=== PATIENT | female | born 1955 | race Caucasian/White ===

== ENCOUNTER 2016-08-22 20:09 | Emergency (ER) | payer SELFPAY ==
[2016-08-22 20:10] VITALS: BP 189/80; PULSE 80; RESP 16; TEMP 98.5; O2SAT 98
[2016-08-22 22:26] LABS: AUTOMATED NEUTROPHIL # 5.4 TH/MM3 (1.8-7.7); BASOPHIL # 0.1 TH/MM3 (0-0.2); BASOPHIL % 0.7 % (0.0-2.0); EOSINOPHIL # 0.2 TH/MM3 (0-0.4); EOSINOPHIL % 2.1 % (0.0-4.0); HEMO FLAGS DIFF FINAL; LYMPH % 33.5 % (9.0-44.0); LYMPHOCYTE # 3.1 TH/MM3 (1.0-4.8); MEAN CELL VOLUME 83.8 FL (80.0-100.0); MEAN CORPUSCULAR HEMOGLOBIN 28.9 PG (27.0-34.0); MEAN CORPUSCULAR HGB CONC 34.5 % (32.0-36.0); MONO % 5.7 % (0.0-8.0); PLATELET COUNT 280 TH/MM3 (150-450); RED CELL DISTRIBUTION WIDTH 13.5 % (11.6-17.2); WHITE BLOOD COUNT 9.3 TH/MM3 (4.0-11.0)
[2016-08-22 22:43] LABS: BICARBONATE 28.8 MEQ/L (21.0-32.0); POTASSIUM 4.2 MEQ/L (3.5-5.1)
--- NOTE | 2016-08-23 00:52 | PD ---
HPI Chief Complaint: Bleeding Time Seen by Provider: 23:46 Travel History International Travel<30 days: No Contact w/Intl Traveler<30days: No Traveled to known affect area: No History of Present Illness HPI 60-year-old female arrives complaining of vaginal bleeding for 3 months. She has minimal spotting following urination initially. Today the patient required or pads to control bleeding. She offers no system consistent with acute anemia. She denies a past surgical history. Last menstruation was over 10 years prior. Past medical history includes diabetes type 2, hypertension, hypothyroidism, hyperlipidemia. She has no known drug allergies. She recently relocated to the area and has no follow-up. PFSH Past Medical History Hx Anticoagulant Therapy: Yes Diabetes: Yes Patient Takes Glucophage: Yes Hypertension: Yes Thyroid Disease: Yes ?: Not Past Surgical History Surgical History: No Previous Surgery Social History Alcohol Use: No Tobacco Use: No Substance Use: No Allergies-Medications (Allergen,Severity, Reaction): Coded Allergies: No Known Allergies (Unverified , 08/23/16) Review of Systems Except as stated in HPI: all other systems reviewed are Neg General / Constitutional: No: Fever, Chills Physical Exam Narrative GENERAL: 60-year-old female pleasant no acute distress GENITOURINARY: External genitalia normal. No mass, no lesion or active bleeding involving the vaginal mucosa. SKIN: Focused skin assessment warm/dry. HEAD: Atraumatic. Normocephalic. EYES: Pupils equal and round. No scleral icterus. No injection or drainage. ENT: No nasal bleeding or discharge. Mucous membranes pink and moist. NECK: Trachea midline. No JVD. CARDIOVASCULAR: Regular rate and rhythm. No murmur appreciated. RESPIRATORY: No accessory muscle use. Clear to auscultation. Breath sounds equal bilaterally. GASTROINTESTINAL: Abdomen soft, non-tender, nondistended. Hepatic and splenic margins not palpable. MUSCULOSKELETAL: No obvious deformities. No clubbing. No cyanosis. No edema. NEUROLOGICAL: Awake and alert. No obvious cranial nerve deficits. Motor grossly within normal limits. Normal speech. PSYCHIATRIC: Appropriate mood and affect; insight and judgment normal. Data Data Last Documented VS Vital Signs Date Time Temp Pulse Resp B/P Pulse Ox O2 Delivery O2 Flow Rate FiO2 08/22/16 20:10 98.5 80 16 189/80 98 Room Air Vital signs reviewed Orders Complete Blood Count With Diff (08/22/16 21:12) Basic Metabolic Panel (Bmp) (08/22/16 21:12) Urinalysis - C+S If Indicated (08/23/16 00:22) Urine Culture (08/23/16 00:43) Labs Laboratory Tests Test 08/22/16 08/23/16 21:50 00:43 White Blood Count 9.3 TH/MM3 Red Blood Count 4.90 MIL/MM3 Hemoglobin 14.2 GM/DL Hematocrit 41.0 % Mean Corpuscular Volume 83.8 FL Mean Corpuscular Hemoglobin 28.9 PG Mean Corpuscular Hemoglobin 34.5 % Concent Red Cell Distribution Width 13.5 % Platelet Count 280 TH/MM3 Mean Platelet Volume 7.7 FL Neutrophils (%) (Auto) 58.0 % Lymphocytes (%) (Auto) 33.5 % Monocytes (%) (Auto) 5.7 % Eosinophils (%) (Auto) 2.1 % Basophils (%) (Auto) 0.7 % Neutrophils # (Auto) 5.4 TH/MM3 Lymphocytes # (Auto) 3.1 TH/MM3 Monocytes # (Auto) 0.5 TH/MM3 Eosinophils # (Auto) 0.2 TH/MM3 Basophils # (Auto) 0.1 TH/MM3 CBC Comment DIFF FINAL Differential Comment Sodium Level 140 MEQ/L Potassium Level 4.2 MEQ/L Chloride Level 102 MEQ/L Carbon Dioxide Level 28.8 MEQ/L Anion Gap 9 MEQ/L Blood Urea Nitrogen 26 MG/DL Creatinine 1.26 MG/DL Estimat Glomerular Filtration 43 ML/MIN Rate Random Glucose 117 MG/DL Calcium Level 9.4 MG/DL Urine Color YELLOW Urine Turbidity HAZY Urine pH 5.0 Urine Specific [place] 1.014 Urine Protein 30 mg/dL Urine Glucose (UA) NEG mg/dL Urine Ketones NEG mg/dL Urine Occult Blood LARGE Urine Nitrite NEG Urine Bilirubin NEG Urine Urobilinogen LESS THAN 2.0 MG/DL Urine Leukocyte Esterase SMALL Urine RBC /hpf Urine WBC 22 /hpf Urine Squamous Epithelial 5 /hpf Cells Urine Transitional Epithelial <1 /hpf Cells Urine Bacteria RARE /hpf Urine Mucus FEW /lpf Microscopic Urinalysis Comment CULTURE INDICATED MDM Medical Decision Making Medical Screen Exam Complete: Yes Emergency Medical Condition: Yes Medical Record Reviewed: Yes Differential Diagnosis Acute anemia, uterine cancer, UTI, cervical or vaginal mucosal lesion Narrative Course The patient 60 years old. She has had vaginal bleeding for 3 months. She has yet to follow-up with any provider. Her pelvic exam is unremarkable. There is no acute anemia. The patient understands she might be suffering with uterine cancer or gynecologic cancer. Follow-up providers listed on discharge papers. Pt has verbalized intent to follow up. Possible cystitis noted. Bactrim prescribed. Diagnosis Primary Impression: Vaginal bleeding Additional Impression: Cystitis Referrals: Noris Walker MD [employer] Administrator on-call for [facility] [employer] on 08/23/16, the day you were seen here Rema Manning MD Gynecologic Oncologist Additional Instructions: You have a choice when it comes to health care, and we are glad that you chose [facility]. Hopefully, we have met your expectations on today's visit. You are welcome to return to [facility] at any time, as we are committed to meeting the health care needs of our community. Med/Other Pt SpecificInfo: Prescription(s) given, No Change to Meds Scripts Sulfamethoxazole-Trimethoprim (Bactrim DS)800-160 Mg Tab1 Tab PO BID #6 TAB Ref 0 Prov:Han Stkoes MD 08/23/16 Disposition: 01 DISCHARGE HOME Condition: Stable Han Stokes MD Aug 23, 2016 00:52
[2016-08-23 01:07] LABS: BACTERIA, URINE RARE /hpf; BLOOD, URINE LARGE (NEG); GLUCOSE,URINE NEG (NEG); KETONE, URINE NEG (NEG); MUCUS URINE FEW /lpf (OCC); NITRITE,URINE NEG (NEG); SQUAMOUS EPITHELIAL CELL URINE 5 /hpf (0-5); TRANSITIONAL EPI CELLS, URINE <1 /hpf; URINE COLOR YELLOW (YELLW/STRAW)
[2016-08-23 01:08] LABS: COMMENT (UR) CULTURE INDICATED; CULTURE IF INDICATED CULTURE INDICATED
[2016-08-23] MEDS ORDERED: BACT800T5 PO (01:12)
[2016-08-23] MEDS ORDERED: SULFAMETHOXAZOLE-TRIMETHOPRIM DS 800-160 MG TAB PO ONE (01:15)
== END 2016-08-23 01:47 | disposition home or self-care (01) ==
LOC: NEPC 20:09
DX: N93.9 Abnormal uterine and vaginal bleeding, unspecified (principal); N30.90 Cystitis, unspecified without hematuria; E11.9 Type 2 diabetes mellitus without complications; I10 Essential (primary) hypertension; E03.9 Hypothyroidism, unspecified; E78.5 Hyperlipidemia, unspecified; Z79.01 Long term (current) use of anticoagulants; Z79.84 Long term (current) use of oral hypoglycemic drugs
CPT/HCPCS: 80048; 81001; 85025; 87086; 99283

== ENCOUNTER 2017-04-01 08:49 | Emergency (ER) | payer SELFPAY ==
[~2017-04-01] VITALS: Ht 165.1 cm; Wt 86.0 kg
[~2017-04-01 08:49] MED LIST: BACT800T5 PO
[2017-04-01 08:51] VITALS: BP 213/104; PULSE 85; RESP 16; TEMP 98.5; O2SAT 97
[2017-04-01] MEDS ORDERED: METF500T PO (09:14)
[2017-04-01] MEDS ORDERED: LEVO150T7 PO (09:14)
[2017-04-01] MEDS ORDERED: CENTCHW4 CHEW (09:14)
[2017-04-01] MEDS ORDERED: LISI-515 PO (09:14)
[2017-04-01] MEDS ORDERED: ASPI-516 CHEW (09:14)
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
[2017-04-01 09:39] LABS: AUTOMATED NEUTROPHIL # 4.8 TH/MM3 (1.8-7.7); BASOPHIL % 0.6 % (0.0-2.0); EOSINOPHIL # 0.2 TH/MM3 (0-0.4); EOSINOPHIL % 3.4 % (0.0-4.0); HEMATOCRIT 39.7 % (35.0-46.0); HEMO FLAGS DIFF FINAL; LYMPH % 24.4 % (9.0-44.0); LYMPHOCYTE # 1.7 TH/MM3 (1.0-4.8); MEAN CELL VOLUME 83.7 FL (80.0-100.0); MEAN CORPUSCULAR HEMOGLOBIN 27.8 PG (27.0-34.0); MEAN CORPUSCULAR HGB CONC 33.2 % (32.0-36.0); MONO % 4.6 % (0.0-8.0); PLATELET COUNT 314 TH/MM3 (150-450); RED BLOOD COUNT 4.74 MIL/MM3 (4.00-5.30); RED CELL DISTRIBUTION WIDTH 12.6 % (11.6-17.2)
[2017-04-01 09:55] LABS: CHLORIDE 105 MEQ/L (98-107); SODIUM (NA) 139 MEQ/L (136-145)
[2017-04-01 10:00] VITALS: BP 140/67; PULSE 77; RESP 16; O2SAT 98
[2017-04-01 10:00] LABS: ANION GAP 9 MEQ/L (5-15); BICARBONATE 25.4 MEQ/L (21.0-32.0)
[2017-04-01 10:01] LABS: BLOOD UREA NITROGEN 23 MG/DL (7-18)
[2017-04-01 10:03] LABS: ALT (GPT) 23 U/L (10-53)
[2017-04-01 10:04] LABS: AST (GOT) 16 U/L (15-37); GLOMERULAR FILTRATION RATE 56 ML/MIN (>89)
[2017-04-01 10:07] LABS: ALKALINE PHOSPHATASE 73 U/L (45-117); TOTAL BILIRUBIN ADULT 0.3 MG/DL (0.2-1.0)
== END 2017-04-01 10:28 | disposition home or self-care (01) ==
LOC: PHED 08:49
DX: N95.0 Postmenopausal bleeding (principal); N84.1 Polyp of cervix uteri; I10 Essential (primary) hypertension; E11.9 Type 2 diabetes mellitus without complications; E03.9 Hypothyroidism, unspecified; E78.5 Hyperlipidemia, unspecified; Z79.84 Long term (current) use of oral hypoglycemic drugs; Z79.82 Long term (current) use of aspirin; Z79.899 Other long term (current) drug therapy
CPT/HCPCS: 80053; 85025; 99284

== ENCOUNTER 2017-07-23 15:08 | Emergency (ER) | payer BC ==
[~2017-07-23 15:08] MED LIST changes: +ASPI-516 CHEW; -BACT800T5 PO; +CENTCHW4 CHEW; +LEVO150T7 PO; +LISI-515 PO; +METF500T PO
[2017-07-23] MEDS ORDERED: IOHEXOL 350 MG/ML 10 ML VIAL (for RAD DIAG) IVCONTRAST ONE (15:09)
[2017-07-23 15:26] VITALS: BP 193/100; PULSE 91; RESP 20; TEMP 98.4; O2SAT 96
[2017-07-23 16:34] LABS: AUTOMATED NEUTROPHIL # 8.4 TH/MM3 (1.8-7.7); BASOPHIL # 0.1 TH/MM3 (0-0.2); BASOPHIL % 0.5 % (0.0-2.0); EOSINOPHIL # 0.3 TH/MM3 (0-0.4); EOSINOPHIL % 2.4 % (0.0-4.0); HEMATOCRIT 38.9 % (35.0-46.0); HEMOGLOBIN 13.2 GM/DL (11.6-15.3); LYMPH % 14.5 % (9.0-44.0); LYMPHOCYTE # 1.6 TH/MM3 (1.0-4.8); MEAN CORPUSCULAR HEMOGLOBIN 28.2 PG (27.0-34.0); MEAN CORPUSCULAR HGB CONC 33.9 % (32.0-36.0); MEAN PLATELET VOLUME 6.9 FL (7.0-11.0); MONO % 5.3 % (0.0-8.0); MONOCYTE # 0.6 TH/MM3 (0-0.9); NEUT % 77.3 % (16.0-70.0); PLATELET COUNT 408 TH/MM3 (150-450); RED BLOOD COUNT 4.68 MIL/MM3 (4.00-5.30); RED CELL DISTRIBUTION WIDTH 13.2 % (11.6-17.2); WHITE BLOOD COUNT 10.8 TH/MM3 (4.0-11.0)
[2017-07-23 16:35] LABS: BACTERIA, URINE RARE /hpf; BILIRUBIN, URINE NEG (NEG); BLOOD, URINE SMALL (NEG); GLUCOSE,URINE NEG (NEG); KETONE, URINE NEG (NEG); NITRITE,URINE NEG (NEG); PH, URINE 5.5 (5.0-8.5); RENAL EPITHELIAL CELLS <1 /hpf; SQUAMOUS EPITHELIAL CELL URINE 1 /hpf (0-5); URINE COLOR YELLOW (YELLW/STRAW); URINE LEUKOCYTE ESTERASE NEG (NEG)
[2017-07-23 16:47] LABS: ALT (GPT) 27 U/L (10-53); AST (GOT) 20 U/L (15-37); BICARBONATE 28.4 MEQ/L (21.0-32.0); BLOOD UREA NITROGEN 23 MG/DL (7-18); CALCIUM 9.3 MG/DL (8.5-10.1); CHLORIDE 103 MEQ/L (98-107); CREATININE 0.98 MG/DL (0.50-1.00); GLOMERULAR FILTRATION RATE 58 ML/MIN (>89); GLUCOSE,RANDOM 112 MG/DL (74-106); SODIUM (NA) 138 MEQ/L (136-145)
[2017-07-23 16:50] LABS: ALKALINE PHOSPHATASE 122 U/L (45-117); TOTAL BILIRUBIN ADULT 0.3 MG/DL (0.2-1.0); TOTAL PROTEIN 8.1 GM/DL (6.4-8.2)
[2017-07-23] MEDS ORDERED: METOCLOPRAMIDE HCL 10 MG/2 ML VIAL IV PUSH ONE (17:30)
[2017-07-23] MEDS ORDERED: SODIUM CHLOR 0.9% 1000 ML INJ 1,000 ML IV ONE (17:30)
[2017-07-23] MEDS ORDERED: MORPHINE SULFATE 2 MG/ML INJ IV PUSH ONE (17:30)
--- NOTE | 2017-07-23 17:33 | PD ---
HPI Chief Complaint: Abdominal Pain Time Seen by Provider: 17:12 Travel History International Travel<30 days: No Contact w/Intl Traveler<30days: No Traveled to known affect area: No History of Present Illness HPI 61-year-old female with a history of diabetes, hypertension, hypothyroidism presents emergency department with a one-week history of abdominal bloating, nausea and pain with breathing. Patient states that she has lower midsternal and upper abdominal pain with inspiration described as sharp and moderate. Says she cannot tolerate her pain anymore. Pain is nonradiating. Patient denies vomiting or diarrhea. States her last bowel moment was 2 days ago which is normal for her. Denies history of abdominal surgeries. Denies history of heart disease. Patient was recently diagnosed with cervical cancer and was due to follow-up with Dr. Manning. [facility] Past Medical History Hx Anticoagulant Therapy: No Cancer: Yes (cervical) Diabetes: Yes Patient Takes Glucophage: No Hypertension: Yes Thyroid Disease: Yes Menopausal: Yes Dilation and Curettage (D&C): Yes Social History Alcohol Use: No Tobacco Use: No Substance Use: No Allergies-Medications (Allergen,Severity, Reaction): Coded Allergies: No Known Allergies (Unverified Adverse Reaction, Unknown, 04/01/17) Reported Meds & Prescriptions Reported Meds & Active Scripts Active Metoclopramide (Metoclopramide HCl) 10 Mg Tab 10 Mg PO QID 5 Days Reported Centrum (Multiple Vitamins W/ Minerals) 1 Chew 1 Tab CHEW DAILY Aspirin 81 Mg Chew 81 Mg CHEW DAILY Lisinopril 20 Mg Tab 20 Mg PO DAILY Levothyroxine (Levothyroxine Sodium) 150 Mcg Tab 150 Mcg PO DAILY Metformin (Metformin HCl) 500 Mg Tab 500 Mg PO TIDPC Review of Systems Except as stated in HPI: all other systems reviewed are Neg Physical Exam Narrative GENERAL: WD, WN in NAD SKIN: Focused skin assessment warm/dry. HEAD: Atraumatic. Normocephalic. EYES: Pupils equal and round. No scleral icterus. No injection or drainage. ENT: No nasal bleeding or discharge. Mucous membranes pink and moist. NECK: Trachea midline. No JVD. CARDIOVASCULAR: Regular rate and rhythm. No murmur appreciated. RESPIRATORY: No accessory muscle use. Clear to auscultation. Breath sounds equal bilaterally. GASTROINTESTINAL: Abdomen soft,TTP RUQ &midabdomen, normoactive bowel sounds, no masses or organomegaly MUSCULOSKELETAL: No obvious deformities. No clubbing. No cyanosis. No edema. Homans sign negative bilaterally NEUROLOGICAL: Awake and alert. No obvious cranial nerve deficits. Motor grossly within normal limits. Normal speech. PSYCHIATRIC: Appropriate mood and affect; insight and judgment normal. Data Data Last Documented VS Vital Signs Date Time Temp Pulse Resp B/P (MAP) Pulse Ox O2 Delivery O2 Flow Rate FiO2 07/23/17 20:16 07/23/17 18:00 84 24 98 Room Air 07/23/17 15:26 98.4 Orders Orders Complete Blood Count With Diff (07/23/17 15:28) Comprehensive Metabolic Panel (07/23/17 15:28) Lipase (07/23/17 15:28) Prothrombin Time / Inr (Pt) (07/23/17 15:28) Act Partial Throm Time (Ptt) (07/23/17 15:28) Urinalysis - C+S If Indicated (07/23/17 15:28) Ct Pulmonary Angiogram (07/23/17 ) Ct Abd/Pel W Iv Contrast(Rout) (07/23/17 ) Metoclopramide Inj (Reglan Inj) (07/23/17 17:30) Morphine Inj (Morphine Inj) (07/23/17 17:30) Sodium Chlor 0.9% 1000 Ml Inj (Ns 1000 M (07/23/17 17:30) Iohexol 350 Inj (Omnipaque 350 Inj) (07/23/17 15:09) Ed Discharge Order (07/23/17 19:58) Labs Laboratory Tests Test 07/23/17 16:00 07/23/17 16:18 Urine Color YELLOW Urine Turbidity CLEAR Urine pH 5.5 Urine Specific [place] 1.021 Urine Protein 30 mg/dL Urine Glucose (UA) NEG mg/dL Urine Ketones NEG mg/dL Urine Occult Blood SMALL Urine Nitrite NEG Urine Bilirubin NEG Urine Urobilinogen LESS THAN 2.0 MG/DL Urine Leukocyte Esterase NEG Urine RBC 23 /hpf Urine WBC 8 /hpf Urine Squamous Epithelial Cells 1 /hpf Urine Renal Epithelial Cells <1 /hpf Urine Bacteria RARE /hpf Microscopic Urinalysis Comment CULT NOT INDICATED White Blood Count 10.8 TH/MM3 Red Blood Count 4.68 MIL/MM3 Hemoglobin 13.2 GM/DL Hematocrit 38.9 % Mean Corpuscular Volume 83.0 FL Mean Corpuscular Hemoglobin 28.2 PG Mean Corpuscular Hemoglobin Concent 33.9 % Red Cell Distribution Width 13.2 % Platelet Count 408 TH/MM3 Mean Platelet Volume 6.9 FL Neutrophils (%) (Auto) 77.3 % Lymphocytes (%) (Auto) 14.5 % Monocytes (%) (Auto) 5.3 % Eosinophils (%) (Auto) 2.4 % Basophils (%) (Auto) 0.5 % Neutrophils # (Auto) 8.4 TH/MM3 Lymphocytes # (Auto) 1.6 TH/MM3 Monocytes # (Auto) 0.6 TH/MM3 Eosinophils # (Auto) 0.3 TH/MM3 Basophils # (Auto) 0.1 TH/MM3 CBC Comment DIFF FINAL Differential Comment Prothrombin Time 10.0 SEC Prothromb Time International Ratio 1.0 RATIO Activated Partial Thromboplast Time 27.2 SEC Blood Urea Nitrogen 23 MG/DL Creatinine 0.98 MG/DL Random Glucose 112 MG/DL Total Protein 8.1 GM/DL Albumin 4.0 GM/DL Calcium Level 9.3 MG/DL Alkaline Phosphatase 122 U/L Aspartate Amino Transf (AST/SGOT) 20 U/L Alanine Aminotransferase (ALT/SGPT) 27 U/L Total Bilirubin 0.3 MG/DL Sodium Level 138 MEQ/L Potassium Level 4.4 MEQ/L Chloride Level 103 MEQ/L Carbon Dioxide Level 28.4 MEQ/L Anion Gap 7 MEQ/L Estimat Glomerular Filtration Rate 58 ML/MIN Lipase 160 U/L MDM Medical Decision Making Medical Screen Exam Complete: Yes Emergency Medical Condition: Yes Differential Diagnosis Pneumonia, urinary tract infection, bronchitis Narrative Course 61-year-old female with a history of diabetes, hypertension, hypothyroidism presents emergency department with a one-week history of abdominal bloating, nausea and pain with breathing. Patient states that she has lower midsternal and upper abdominal pain with inspiration described as sharp and moderate. Says she cannot tolerate her pain anymore. Pain is nonradiating. Patient denies vomiting or diarrhea. States her last bowel moment was 2 days ago which is normal for her. Denies history of abdominal surgeries. Denies history of heart disease. Patient was recently diagnosed with cervical cancer and was due to follow-up with Dr. Manning. Vital signs stable. Physical exam findings demonstrate tenderness to palpation to the right lower quadrant and mid abdominal region. Negative Rovsing's, negative psoas, negative McBurney's. Labs and imaging studies ordered. Ordered CT abdomen pelvis along with CT pulmonary angiogram as patient does have a history of cancer and she describes sharp pain increased with inspiration to the mid sternal region. Morphine and Reglan administered for her abdominal pain. CBC & BMP Diagram 07/23/17 16:18 Total Protein 8.1, Albumin 4.0, Calcium Level 9.3, Alkaline Phosphatase 122 H, Aspartate Amino Transf (AST/SGOT) 20, Alanine Aminotransferase (ALT/SGPT) 27, Total Bilirubin 0.[address] Angiography 07/23/17 0000 Signed Impressions: Service Date/Time: Sunday, July 23, 2017 18:19 - CONCLUSION: 1. No evidence of pulmonary embolism. Dewey Renae MD Abdomen/Pelvis CT 07/23/17 0000 Signed Impressions: Service Date/Time: Sunday, July 23, 2017 18:19 - CONCLUSION: 1. Fluid in endometrial cavity which may reflect hyperplasia or malignancy. Abnormal soft tissue density in the omentum may reflect peritoneal malignancy as well. PET/ CT scan is recommended to further evaluation if clinically indicated. Dewey Renae MD Patient states that she feels much better after morphine and Reglan. States that the pain is tolerable. I had an extensive discussion with her regarding her findings today. Advised that she should follow-up with Dr. Manning as previously previously discussed. She says that she was due for chemo and radiation therapy for her cancer. Her daughter was in the room as well during the discussion and explained that she had had a hard time getting an appointment. I advised him to take all of the labs and imaging studies done today to their office and request an appointment based off of the findings today. Patient and family state understanding and will comply. She will be discharged with Reglan. Advised she should follow-up with her primary care physician as soon as possible. Return to the emergency department if symptoms persist or worsen or persist. Diagnosis Primary Impression: Abdominal pain Qualified Codes: R10.84 - Generalized abdominal pain Referrals: Rema Manning MD Additional Instructions: Take medication as prescribed. Follow-up with Dr. Manning as previously planned and take all labs and imaging studies. If your symptoms persist or worsen return to the emergency department. Scripts Metoclopramide (Metoclopramide) 10 Mg Tab 10 MG PO QID for 5 Days, TAB 0 Refills Prov: Patria Sethi 07/23/17 Disposition: 01 DISCHARGE HOME Condition: Stable Patria Sethi Jul 23, 2017 17:33
[2017-07-23 18:00] VITALS: BP 137/67; PULSE 84; RESP 24; O2SAT 98
--- NOTE | 2017-07-23 18:58 | RADRPT ---
EXAM DATE/TIME: 07/23/2017 18:19 [facility] COMPARISON: No previous studies available for comparison. INDICATIONS : Midsternal pain with inspiration. IV CONTRAST: 80 cc Omnipaque 350 (iohexol) IV ; Cumulative dose for multiple exams. RADIATION DOSE: 18.24 CTDIvol (mGy) ; Combined studies MEDICAL HISTORY : Hypertension. Diabetes mellitus type 1. cervical cancer SURGICAL HISTORY : None. ENCOUNTER: Initial ACUITY: 1 week PAIN SCALE: 7/10 LOCATION: chest TECHNIQUE: Volumetric scanning of the chest was performed using a pulmonary embolism protocol MIP images were re constructed. Using automated exposure control and adjustment of the mA and/or kV according to patien t size, radiation dose was kept as low as reasonably achievable to obtain optimal diagnostic quality images. DICOM format image data is available electronically for review and comparison. Follow-up recommendations for detected pulmonary nodules are based at a minimum on nodule size and pa tient risk factors according to Fleischner Society Guidelines. FINDINGS: Examination of the pulmonary vasculature demonstrates good filling of the main, lobar and segmental b ranches. There are no filling defects to suggest pulmonary embolism. Multiplanar reconstructions are also unremarkable. There is minimal atelectasis versus scar in the left base. No pulmonary nodules are identified. No pl eural effusions are identified. Examination of the mediastinum demonstrates no abnormally enlarged ly mph nodes by CT criteria. No axillary or hilar abnormalities are identified. Coronary artery calcific ations are not present. The visualized upper abdomen demonstrates no abnormality. CONCLUSION: 1. No evidence of pulmonary embolism. Dewey Renae MD on July 23, 2017 at 18:54 Board Certified Radiologist. This report was verified electronically.
--- NOTE | 2017-07-23 19:07 | RADRPT ---
EXAM DATE/TIME: 07/23/2017 18:19 [facility] COMPARISON: No previous studies available for comparison. INDICATIONS : Patient complains of right upper quadrant pain. IV CONTRAST: 80 cc Omnipaque 350 (iohexol) IV ; Cumulative dose for multiple exams. ORAL CONTRAST: No oral contrast ingested. RADIATION DOSE: 18.24 CTDIvol (mGy) ; Combined studies MEDICAL HISTORY : Hypertension. Diabetes mellitus type 1. cervical cancer SURGICAL HISTORY : None. ENCOUNTER: Initial ACUITY: 1 week PAIN SCALE: 7/10 LOCATION: Right upper quadrant TECHNIQUE: Volumetric scanning of the abdomen and pelvis was performed. Using automated exposure control and ad justment of the mA and/or kV according to patient size, radiation dose was kept as low as reasonably achievable to obtain optimal diagnostic quality images. DICOM format image data is available electro nically for review and comparison. FINDINGS: Examination of the lung bases demonstrates no abnormality. No pleural fluid is identified. No pulmona ry nodules are present. The liver and spleen are free of focal defects. The gallbladder and pancreas demonstrate no abnormality. The adrenal glands are normal. The kidneys demonstrate no evidence of diana id renal mass or hydronephrosis. No free fluid or abdominal masses are identified. No para-aortic ailyn nopathy is seen. Examination of the pelvis demonstrates no evidence of free fluid or pelvic mass. No abnormally enlarg ed inguinal or retroperitoneal lymph nodes are present. The bladder is unremarkable. There is a 4 sym metr fluid collection within the endometrial cavity. This may reflect hyperplasia or malignancy as we ll as obstruction of the lower uterine segment. In addition there is abnormal soft tissue density inv olving the greater omentum centrally and to the left. Malignancy in this area is not excluded. PET/CT scan is recommended to further evaluation if clinically indicated. CONCLUSION: 1. Fluid in endometrial cavity which may reflect hyperplasia or malignancy. Abnormal soft tissue dens ity in the omentum may reflect peritoneal malignancy as well. PET/CT scan is recommended to further e valuation if clinically indicated. Dewey Renae MD on July 23, 2017 at 19:02 Board Certified Radiologist. This report was verified electronically.
[2017-07-23] MEDS ORDERED: METO10TA PO (19:56)
== END 2017-07-23 20:28 | disposition home or self-care (01) ==
LOC: NEPC 15:08
DX: R10.84 Generalized abdominal pain (principal); J98.11 Atelectasis; E11.9 Type 2 diabetes mellitus without complications; I10 Essential (primary) hypertension; E03.9 Hypothyroidism, unspecified; Z79.82 Long term (current) use of aspirin; Z79.899 Other long term (current) drug therapy
CPT/HCPCS: 71275; 74177; 80053; 81001; 83690; 85025; 85610; 85730; 96361; 96374; 96375; 99284; J2270; J2765; J7030; Q9967

== ENCOUNTER → 2017-08-02 | Outpatient (CLI) | payer BC ==
[~2017-08-02] MED LIST changes: +METO10TA PO
--- NOTE | 2017-08-03 23:17 | EKG ---
Date Performed: 08/02/2017 Time Performed: 09:15:40 PTAGE: 61 years EKG: Sinus rhythm . --- Suspect arm lead reversal - only aVF, V1-V6 analyzed --- Possible inferior infarct - age undete rmined Low QRS voltages in precordial leads Abnormal ECG NO PREVIOUS TRACING DOCTOR: Rajeev Stokes Interpretating Date/Time 08/03/2017 23:15:33
== END ==
LOC: HCAV 09:02
PROVIDERS: ATTEND Obstetrics & Gynecology Gynecologic Oncology
DX: Z01.818 Encounter for other preprocedural examination (principal); R94.31 Abnormal electrocardiogram [ECG] [EKG]
CPT/HCPCS: 93005

== ENCOUNTER → 2017-09-03 | Day surgery (SDC) | payer BC ==
[~2017-09-03] VITALS: Ht 165.1 cm; Wt 80.9 kg
[~2017-09-03] MED LIST changes: +*morphine SULFATE 4 MG/ML PERIprocedure ONLY ONE; +ACETAMINOPHEN 1000 MG/100 ML 100 ML IV ONE; +CHLORHEXIDINE GLUCONATE 2 % 1 PACK (2 CLOTHS) TOPICAL PRN; +DEXAMETHASONE SOD PHOS 4 MG/ML VIAL IV ONE; +DO NOT ADM ANY ANTICOAGULANT DRUGS PRN; +KETOROLAC TROMETHAMINE 30 MG/ML (IVP) VIAL IV PUSH PRN; +LACTATED RINGER'S 1000 ML IV PRN; +LIDOCAINE 1%/EPINEPHrine 1:100,000 SOLN 30 ML VIAL ONE; +LIDOCAINE HCL 1% PF 5 ML SYRINGE OTHER ONE; -METO10TA PO; +METOPROLOL TARTRATE 25 MG TAB PO PRN; +MIDAZOLAM HCL 2 MG/2 ML VIAL ONE; +ONDANSETRON HCL 4 MG/2 ML VIAL IV ONE; +POVIDONE IODINE 5% (ANTISEPSIS KIT) 4 APPLICATIONS EACH NARE PRN; +PROPOFOL 200 MG/20 ML AMP IV ONE; +SODIUM CHLORID 0.9% 500 ML IV PRN; +oxyCODONE/ACETAMINOPHEN 5 MG/325 MG TAB PO PRN
--- NOTE | 2017-09-03 09:05 | MP ---
cc: Rema Manning MD, Beth A MD Larrazabal,Carl Alegre,Curry Farr MD DATE OF OPERATION: 09/03/2017 PREOPERATIVE DIAGNOSES: 1. Postmenopausal bleeding. 2. Pap smear showing adenocarcinoma. 3. Enlarged uterus with a 28 mm endometrial stripe. 4. CAT scan showing thickened omentum suspicious for carcinomatosis. POSTOPERATIVE DIAGNOSIS: 1. Postmenopausal bleeding. 2. Pap smear showing adenocarcinoma. 3. Enlarged uterus with a 28 mm endometrial stripe. 4. CAT scan showing thickened omentum suspicious for carcinomatosis. PROCEDURE: Examination under anesthesia, fractional dilation and curettage, cystoscopy, proctoscopy. SURGEON: Rema Manning MD. PLANT OPERATIONS MANAGER: Michelle melter assistant. ANESTHESIA: Laryngeal mask anesthesia. ESTIMATED BLOOD LOSS: 20 mL. HISTORY: This is a 61-year-old female who has been bleeding for well over a year, the exact duration is uncertain. She also reports in the last couple of months, she has had increasing abdominal girth, a sense of abdominal distention, abdominal and pelvic pain and pressure. The evaluation thus far has included a Pap smear that showed an adenocarcinoma. Imaging shows the uterus to have a prominent endometrial stripe 28 mm. CAT scan imaging shows thickened omentum suggestive of metastatic disease. She has been counseled regarding these findings and recommendations to try to clarify the origin and extent of the problem. She is seen again in the preoperative holding area where the findings are reviewed and diagnostic procedures explained again. Questions were asked and answered. She expressed a good understanding. She also knows that she is for a CT-directed biopsy of the omentum this Saturday and she is to contact our office to ensure she has a followup appointment next week so that we can go over the results from today's procedure, as well as the CT-directed biopsy. FINDINGS: On exam under anesthesia, there are no appreciably enlarged inguinal lymph nodes. External genitalia without mass or lesion. The cervix is circumferentially prominent. The external surface of the cervix is smooth. Diameter of the cervix is approximately 4-1/2-5 cm. The cervix is slightly dilated and there is tissue that appears like tumor passing through a partially dilated cervix. The depth of the uterus is uncertain. If it could be sounded, a very cautious sounding was undertaken. It stopped at a depth of 7 cm, there was a high volume of tumor in the endometrium and it is felt that this depth may represent when it first hit the tumor in the fundal upper uterine region and may not represent the fundal height. Where as there is no overt parametrial extension on rectovaginal exam on the left, the parametria is smooth. There was a slight bit of retraction of the cervix in the upper vagina that may be inflammation or possibly some early parametrial infiltration on the right side. There is certainly no tumor extending to the pelvic sidewall that can be appreciated and the cervix and uterus does have some mobility. On cystoscopy, the bladder mucosa appears normal circumferentially. The ureteral ostia were well visualized bilaterally. There was good efflux of urine bilaterally. The mucosa is easily irritated, but there is no change to suggest neoplasm. On rigid proctosigmoidoscopy to a depth of 20 cm, the mucosa appears normal. There is no mass or polyp. No obvious infiltration or significant extrinsic compression or deviation to the anus and rectum. PROCEDURE: She was taken to the operating room, placed in the dorsal lithotomy position. After laryngeal mask anesthesia was administered, a time-out was undertaken. She was identified by site recognition and hospital ID bracelet and the proposed procedure was reviewed and confirmed. She was placed in lithotomy position. Exam under anesthesia was performed with findings as described above. She was then prepped and draped in a sterile fashion. In-and-out catheterization of the bladder was performed. The cervix was grasped with tenaculum. Biopsies from the tissue protruding through a dilated cervix were removed. Some was sent for frozen section analysis, some were sent for permanent. The results are pending at the time of this dictation. The cervix was dilated, uterine cavity sounded and even before curetting, a large volume of tumor extruded through the dilated cervix. A single pass with the curet yielded a large amount of tissue from the endometrium and to render this hemostatic, a piece of Surgicel was placed in the cervical canal extending into the lower uterine segment with the external portion passing through the cervical os and the tenaculum sites were rendered hemostatic with Monsel's solution. Cystoscopy was performed using a 30-degree scope with findings as described above. The bladder was then drained. Proctosigmoidoscopy was performed using a rigid proctosigmoidoscope with findings as described above. Air was released. The proctoscope was removed. A change of sterile gloves was undertaken. All sites were checked. There were no remaining foreign objects in the vagina. Preliminary and final counts were correct. She was returned to dorsal supine position and was pending reversal of anesthesia when I left the operating room to precede her to the Postanesthesia Care Unit. MD JESUS Herndon/SONA , 08:27 AM , 09:03 AM
[2017-09-03 09:45] VITALS: BP 165/91; PULSE 92; RESP 18; TEMP 97.4; O2SAT 96
== END | disposition home or self-care (01) ==
LOC: HSDC 05:39
PROVIDERS: ATTEND Obstetrics & Gynecology Gynecologic Oncology
DX: C53.9 Malignant neoplasm of cervix uteri, unspecified (principal); N95.0 Postmenopausal bleeding; N85.2 Hypertrophy of uterus; I10 Essential (primary) hypertension; E11.9 Type 2 diabetes mellitus without complications; Z79.84 Long term (current) use of oral hypoglycemic drugs
CPT/HCPCS: 00940; 45300; 52000; 58120; 86850; 86900; 86901; 88305; 88331; J0131; J1100; J2250; J2270; J2405; J3010

== ENCOUNTER 2017-09-06 08:03 | Day surgery (SDC) | payer BC ==
[2017-09-06] VITALS (7 sets, daily range): BP systolic 101–133; BP diastolic 58–80; PULSE 63–88; RESP 18–20; TEMP 97.7–98; O2SAT 94–95
[~2017-09-06] VITALS: Ht 165.1 cm; Wt 80.5 kg
[~2017-09-06 08:03] MED LIST changes: -*morphine SULFATE 4 MG/ML PERIprocedure ONLY ONE; -ACETAMINOPHEN 1000 MG/100 ML 100 ML IV ONE; -CHLORHEXIDINE GLUCONATE 2 % 1 PACK (2 CLOTHS) TOPICAL PRN; -DEXAMETHASONE SOD PHOS 4 MG/ML VIAL IV ONE; -DO NOT ADM ANY ANTICOAGULANT DRUGS PRN; -KETOROLAC TROMETHAMINE 30 MG/ML (IVP) VIAL IV PUSH PRN; -LACTATED RINGER'S 1000 ML IV PRN; -LIDOCAINE 1%/EPINEPHrine 1:100,000 SOLN 30 ML VIAL ONE; -LIDOCAINE HCL 1% PF 5 ML SYRINGE OTHER ONE; -METOPROLOL TARTRATE 25 MG TAB PO PRN; -MIDAZOLAM HCL 2 MG/2 ML VIAL ONE; -ONDANSETRON HCL 4 MG/2 ML VIAL IV ONE; -POVIDONE IODINE 5% (ANTISEPSIS KIT) 4 APPLICATIONS EACH NARE PRN; -PROPOFOL 200 MG/20 ML AMP IV ONE; -SODIUM CHLORID 0.9% 500 ML IV PRN; -oxyCODONE/ACETAMINOPHEN 5 MG/325 MG TAB PO PRN
[2017-09-06] MEDS ORDERED: LIDOCAINE 1%/EPINEPHrine 1:100,000 SOLN 50 ML VIAL ONE (08:19)
[2017-09-06] MEDS ORDERED: MIDAZOLAM HCL 2 MG/2 ML VIAL ONE (08:53)
[2017-09-06] MEDS ORDERED: SODIUM CHLOR 0.9% 1000 ML IV SCH (09:00)
--- NOTE | 2017-09-06 10:30 | RADRPT ---
EXAM DATE/TIME: 09/06/2017 09:09 [facility] COMPARISON: CT NEEDLE BIOPSY ABDOMEN, September 06, 2017, 9:09. INDICATIONS : Ascites. SEDATION TIME: 25 minutes MEDICATION(S): 1.) 2 mg midazolam (Versed) IV 2.) 250 mcg fentanyl (Sublimaze) IV DEVICE(S): 1.) 19 gauge bard FLUID: Total volume of 550 cc of clear, yellow fluid was removed. Fluid was sent for laboratory ordered studies. MEDICAL HISTORY : Hypertension. Diabetes SURGICAL HISTORY : None. ENCOUNTER: Initial ACUITY: 1 day PAIN SCORE: 0/10 LOCATION: anterior PROCEDURE: 1.) Conscious sedation with continuous EKG and oximetry monitoring. PROCEDURE : 1. CT-guidance for abdominal paracentesis. 2. Paracentesis. The risks, benefits and alternatives to CT-guided paracentesis were explained to the patient in detai l, lay terms including the risk of bleeding and infection. Oral and written informed consent was obt ained. Using automated exposure control and adjustment of the mA and/or kV according to patient size, radiation dose was kept as low as reasonably achievable to obtain optimal diagnostic quality images. DICOM format image data is available electronically for review and comparison. Patient has peritoneal disease by PET scan. This is hard to visualize by noncontrast CT. Plan is to perform the paracentesis and biopsy peritoneum on the way out. Post procedure scanning reveals no evidence of hematoma or other complication. The patient tolerated the procedure well and left the CT suite in good condition. CONCLUSION: Uncomplicated CT Guided paracentesis. Cytology is pending Jaylon Valdes MD FACR on September 06, 2017 at 10:26 Board Certified Radiologist. This report was verified electronically.
--- NOTE | 2017-09-06 10:35 | RADRPT ---
EXAM DATE/TIME: 09/06/2017 09:09 [facility] COMPARISON: No previous studies available for comparison. INDICATIONS : Omental caking. SEDATION TIME: 25 minutes BIOPSY SITE: Left abdomen MEDICATION(S): 1.) 2 mg midazolam (Versed) IV 2.) 150 mcg fentanyl (Sublimaze) IV DEVICE(S): 1.) 19 gauge Bard 2.) 20 gauge 10cm Bard MEDICAL HISTORY : Hypertension. Diabetes SURGICAL HISTORY : None. ENCOUNTER: Initial ACUITY: 1 day PAIN SCORE: 0/10 LOCATION: anterior A total of two core specimen(s) were obtained and sent to the laboratory for pathologic evaluation. PROCEDURE: 1. CT guided abdomen biopsy. 2. Conscious sedation with continuous EKG and oximetry monitoring. Prior to the procedure informed consent was obtained. Any appropriate prior imaging studies were rev iewed. Using automated exposure control and adjustment of the mA and/or kV according to patient size, radiat ion dose was kept as low as reasonably achievable to obtain optimal diagnostic quality images. DICOM format image data is available electronically for review and comparison. The site was prepped in a sterile fashion. Full sterile technique was used, including cap, mask, gavin rile gloves and gown and a large sterile sheet. Hand hygiene and 2% chlorhexidine and/or betadine/al cohol prep was utilized per protocol for cutaneous antisepsis. The skin and subcutaneous tissues wer e infiltrated with local anesthetic solution. The patient has tach positive peritoneal implants difficult to appreciate by CT. Following paracente sis 3 core biopsies were obtained of the peritoneal junction with the abdominal wall. These were sub mitted to pathology. Follow-up CT scan reveals no hemorrhage. The patient tolerated the procedure well and there were no complications. The patient was returned to the Radiology Outpatient Unit in stable condition. CONCLUSION: Uncomplicated CT guided biopsy of abdominal wall peritoneal junction. Both pathology of this procedu re and cytology is pending.. Jaylon Valdes MD FACR on September 06, 2017 at 10:31 Board Certified Radiologist. This report was verified electronically.
== END 2017-09-06 12:25 | disposition home or self-care (01) ==
LOC: HRAD 08:03 → HRIP 08:04 → HRAD 12:25
PROVIDERS: ATTEND Obstetrics & Gynecology Gynecologic Oncology
DX: R18.8 Other ascites (principal); C48.1 Malignant neoplasm of specified parts of peritoneum; I10 Essential (primary) hypertension; E11.9 Type 2 diabetes mellitus without complications
CPT/HCPCS: 49083; 49180; 77012; 88305; 88333; 99152; 99153; J2250; J3010; J7030

== ENCOUNTER 2017-09-30 08:35 | Day surgery (SDC) | payer BC ==
[~2017-09-30] VITALS: Ht 165.1 cm; Wt 63.6 kg
[2017-09-30] VITALS (7 sets, daily range): BP systolic 125–145; BP diastolic 69–86; PULSE 83–92; RESP 18–20; TEMP 97.7–98.2; O2SAT 90–97
[2017-09-30] MEDS ORDERED: ceFAZolin 2 GM PREMIX 50 ML - implanted port/tunneled catheter insertion IV SCH (09:15)
[2017-09-30] MEDS ORDERED: CHLORHEXIDINE GLUCONATE 2 % 1 PACK (2 CLOTHS) TOPICAL SCH (09:15)
[2017-09-30] MEDS ORDERED: POVIDONE IODINE 5% (ANTISEPSIS KIT) 4 APPLICATIONS EACH NARE SCH (09:15)
[2017-09-30] MEDS: VANCOMYCIN 1000 MG/NS 250 ML - implanted port/tunneled catheter IV SCH ×4 (09:40→11:15)
[2017-09-30] MEDS ORDERED: MIDAZOLAM HCL 2 MG/2 ML VIAL ONE (09:55)
[2017-09-30] MEDS ORDERED: LIDOCAINE 1%/EPINEPHrine 1:100,000 SOLN 20 ML VIAL ONE (10:03)
--- NOTE | 2017-09-30 11:35 | PD.RAD ---
Post Procedure Progress Note Pre Procedure Diagnosis: (1) Endometrial cancer (2) Vaginal bleeding Post Procedure Diagnosis: (1) Vaginal bleeding (2) Endometrial cancer Procedure Date: September 30, 2017 Supervising Radiologist: Brian Camargo Proceduralist/Assist: Yesica Honeycutt, RT(R), Mariama Martinez RT(R)() Anesthesia: Local, Analgesia, Conscious Sedation Plan of Activity Patient to Unit: [facility] Patient Condition: Good See PACS Report for procedural detail/treatment Central Venous Access Device Procedure 1 Right Internal Jugular Infusaport Placement single lumen Divehi: 8 Brian Camargo MD September 30, 2017 11:35
[2017-09-30] MEDS ORDERED: SODIUM CHLORIDE 0.9% FLUSH 10 ML FLUSH IVF PRN (11:45)
--- NOTE | 2017-09-30 14:02 | RADRPT ---
EXAM DATE/TIME: 09/30/2017 10:45 [facility] COMPARISON: No previous studies available for comparison. INDICATIONS : Patient with a history of endometrial cancer. MEDICAL HISTORY : Diabetes High Cholesterol HTN SURGICAL HISTORY : D&C Cataracts ENCOUNTER: Initial ACUITY: 4-6 months PAIN SCORE: 0/10 FLUORO TIME: 0.73 minutes IMAGE SERIES: 1 SEDATION TIME: 20 minutes ACCESS: Right internal jugular vein SEDATION: 1.) 3 mg midazolam (Versed) IV 2.) 150 mcg fentanyl (Sublimaze) IV Prophylactic antibiotics were administered with appropriate pre-procedure timing. Vancomycin within 2 hours of procedure, Ancef (or alternative) within 1 hour of procedure. DEVICE: 1. 8 [place]kin[place] single lumen [id number] PROCEDURE : 1. Continuous pulse oximetry and EKG monitoring. 2. Intravenous conscious sedation. 3. Ultrasound guidance for venous access. 4. Fluoroscopic guided implantable central venous port placement. The patient was placed supine. The neck was prepped in sterile fashion. Full sterile technique was u sed, including cap, mask, sterile gloves and gown, and a large sterile sheet. Hand hygiene and 2% ch lorhexidine Betadine was utilized per protocol for cutaneous antisepsis with appropriate dry time for site. Sterile gel and sterile probe cover were utilized for ultrasound guidance. The skin and sub cutaneous tissues were infiltrated with local anesthetic solution. Under direct ultrasound guidance, central venous access was accomplished in the targeted vessel. The ultrasound images depicting access guidance were stored and saved to PACS for permanent record. A s ubcutaneous pocket was created using blunt dissection. The port was introduced to the pocket. The c atheter tubing was fed through a subcutaneous tunnel to the venotomy site. The catheter tubing was c ut to a suitable length and then was introduced through a valved Peel-Away sheath and positioned with catheter tubing tip at the cavo-atrial junction level. The pocket incision was closed with subcutic ular Vicryl suture. Steri-Strips were applied. The port was flushed and locked with heparin solutio n per protocol. Sterile dressing was applied to the site. The patient tolerated the procedure well. Conscious sedation was performed with the prescribed dosages and duration as above in the presence of an independent trained radiology nurse to assist in the monitoring of the patient. EKG and oximetry remained stable throughout the procedure. The patient tolerated the procedure well and there were no complications. The patient was sent to post anesthesia recovery in stable condition. CONCLUSION: Uncomplicated ultrasound and fluoroscopic guided implanted central venous port catheter placement as described in detail above. An 8 Burkinan Power port was placed. Brian Camargo MD on September 30, 2017 at 14:00 Board Certified Radiologist. This report was verified electronically.
== END 2017-09-30 13:51 | disposition home or self-care (01) ==
LOC: HROP 08:35 → HRIP 08:41 → HROP 13:51
PROVIDERS: ATTEND Obstetrics & Gynecology Gynecologic Oncology
DX: Z45.2 Encounter for adjustment and management of vascular access device (principal); C54.1 Malignant neoplasm of endometrium; E11.9 Type 2 diabetes mellitus without complications; I10 Essential (primary) hypertension; E78.00 Pure hypercholesterolemia, unspecified
CPT/HCPCS: 36561; 76937; 77001; 99152; 99153; C1788; J0690; J1642; J2250; J3010; J3370; J7050

== ENCOUNTER 2018-05-05 05:20 | Observation (INO) ==
[2018-05-05] MEDS ORDERED: Metoprolol Tartrate 25 MG Tablet PO ONE (05:56)
[2018-05-05] MEDS ORDERED: Chlorhexidine Gluconate 2% 1 Pack (2 Cloths) TOPICAL ONE (05:56)
[2018-05-05] MEDS ORDERED: Sodium Chlor 0.9% Inj 500 ML IV.SIG SCH (06:00)
[2018-05-05] MEDS ORDERED: ceFAZolin 2 GM IV; once IV.SIG ONE (06:00)
[2018-05-05] MEDS ORDERED: Sugammadex Inj 200 MG/2 ML Vial IV.PUSH ONE (07:02)
[2018-05-05] MEDS ORDERED: Methylene Blue Inj 100 MG/10 ML Vial OTHER ONE (10:58)
[2018-05-05] MEDS ORDERED: LORazepam 0.5 MG Tablet PO PRN (13:05)
[2018-05-05] MEDS ORDERED: Dextrose 50% in Water 50 ML Vial IV.PUSH PRN (13:08)
[2018-05-05] MEDS ORDERED: fentaNYL Citrate Inj 100 MCG/2 ML Ampul ONE ×2 (13:32)
[2018-05-05] MEDS: KCL 20 mEq/D5W/NaCl 0.45% Inj 1,000 ML IV.CONT SCH (13:56)
--- NOTE | 2018-05-05 15:46 | P.PNONC ---
Subjective Interval history: patient resting in bed. sleepy denies nausea or vomiting c/o abdominal pain, just starting to take in fluids, RN aware and will give Percocet as long as continues with no n/v scheduled Toradol family at bedside Objective Vital Signs/Intake & Output: Vital Signs 05/05/18 06:06 05/05/18 13:15 05/05/18 13:30 Temperature 98.7 F 96.0 F L Pulse Rate 65 89 85 Respiratory Rate 16 15 14 Blood Pressure 106/69 174/81 H 157/74 H Pulse Oximetry 97 98 100 05/05/18 13:45 05/05/18 14:00 05/05/18 14:15 Temperature 97.3 F L Pulse Rate 87 86 83 Respiratory Rate 13 19 14 Blood Pressure 156/77 H 150/71 H 154/72 H Pulse Oximetry 100 97 95 05/05/18 14:55 05/05/18 15:01 Temperature 96.8 F L Pulse Rate 85 85 Respiratory Rate 18 Blood Pressure 159/80 H 159/80 H Pulse Oximetry 99 99 Intake & Output 05/04/18 05/05/18 05/05/18 18:59 06:59 18:59 Intake Total 2500 / 2500 Output Total 350 / 350 Balance 2150 / 2150 Weight 81.2 kg Intake: Anesthesia Amount 2500 / 2500 Output: Estimated Blood Loss 350 / 350 Other: Weight On Admission 81.2 kg Laboratory Results: Laboratory Results - last 24 hr 05/05/18 05/05/18 06:15 13:49 POC Glucose 226 H Blood Type A Positive Antibody Screen Negative MTS Gel Crossmatch See Detail Medications: Active Medications Generic Name Dose Route Start Last Admin Trade Name Cornelius PRN Reason Stop Dose Admin Lactated Ringer's 1,000 mls @ 30 mls/hr 05/05/18 06:00 05/05/18 06:39 Lr 1000 Ml Inj IV.SIG 05/06/18 05:59 30 mls/hr .Q24H SHARA Administration Sodium Chloride 500 mls @ 30 mls/hr 05/05/18 06:00 05/05/18 06:39 Ns Inj IV.SIG Not Given .Q10H SHARA Potassium Chloride/Dextrose/Sod Cl 1,000 mls @ 100 mls/hr 05/05/18 13:15 03/13 13:56 D5w/1/2ns + Kcl 20 Meq Inj IV.CONT 100 mls/hr .Q10H SHARA Administration Objective Remarks: GENERAL: Well-nourished, well-developed patient. SKIN: Warm and dry. HEAD: Normocephalic. mild facial swelling EYES: No scleral icterus. No injection or drainage. CARDIOVASCULAR: Regular rate and rhythm without murmurs. RESPIRATORY: No accessory muscle use. GASTROINTESTINAL: Abdomen soft, SS are c/d/i EXTREMITIES:teds and scds MUSCULOSKELETAL: Adequate muscle tone. NEUROLOGICAL: No obvious focal deficit.sleepy PSYCHIATRIC: Appropriate mood and affect Assessment/Plan - Plan s/p RA lap hyst with BSO and tumor debulking post op orders in chart Percocet PRN Toradol scheduled ADAT Beltran to straight drain, will D/C in am anticipate discharge in the next 24-48 hours
--- NOTE | 2018-05-05 15:53 | MP ---
cc: Rema Manning MD, Jesse S MD Serano-Lopez, Carmen DATE OF OPERATION: 05/05/2018 REOPERATIVE DIAGNOSIS: 1. Stage IV endometrial cancer. 2. Status post neoadjuvant Taxol and carboplatin chemotherapy. 3. Prolonged severe myelosuppression. POSTOPERATIVE DIAGNOSES: 1. Stage IV endometrial cancer. 2. Status post neoadjuvant Taxol and carboplatin chemotherapy. 3. Prolonged severe myelosuppression. PROCEDURE PERFORMED: Robotic-assisted laparoscopic hysterectomy, bilateral salpingo-oophorectomy, left ureterolysis, omentectomy with resection of intraperitoneal tumor, extensive lysis of adhesions. SURGEON: Rema Manning. ASSISTANT PLANT CONTROL OPERATOR: Michelle ornelascertified surgical tech/first assistant. ANESTHESIA: General endotracheal anesthesia. ESTIMATED BLOOD LOSS: 350 mL. IV FLUIDS: 2500 mL. URINE OUTPUT: 210 mL. HISTORY AND INDICATIONS: A 62-year-old female who presented with carcinomatosis and ascites. Also, on exam the cervix was dilated with tumor extruding through the cervix, coming down from the endometrium. Biopsies confirmed the findings most consistent with metastatic high-grade endometrial cancer. She was counseled and started on neoadjuvant chemotherapy with Taxol and carboplatin. She had a good response in that the ascites resolved. The tumor burden reduced the CA-125 reduced and she felt better and we had tentatively planned for surgery in January of this year. However, her platelet count remained significantly low. She was also quite anemic despite a platelet transfusion and red cell transfusion, her counts did not stay elevated. She was seen and evaluated by hematology, had a bone marrow aspirate. No other acute finding was determined and eventually her counts gradually improved to a safe range. Because of her hematologic suppression, her surgery was deferred until now where it was felt that we could proceed with a surgical resection. She understands that additional chemotherapy will be recommended, but we will likely need to change regimen probably to a single agent treatment given the profound, prolonged pancytopenia related to Taxol and carboplatin. FINDINGS: The uterus is symmetrically enlarged. It sounds to about 9 cm. The right tube and ovary grossly appeared relatively normal. There is a large mass in the left pelvis retroperitonealized partially against the left pelvic sidewall that ultimately was determined to be the left ovary that appears to be replaced with tumor as approximately 8 cm in greatest dimension. The colon is densely adherent to the posterior uterus and cervix. The cul-de-sac is obliterated and the colon and pericolonic fat are adherent to the left pelvic sidewall overlying the adnexal structures. The omentum, some of which appears normal, some of which still has persistent tumor. There are fine miliary implants tumor between 1 to 3 mm on the diaphragm peritoneum. There were some filmy adhesions throughout the peritoneum all suggesting prior tumor that had responded to treatment. The small bowel and mesentery were essentially without any significant tumor except for perhaps small 1-3 mm implants, which were uncommonly seen on the bowel more likely to be seen on the pelvic and abdominal peritoneal surfaces. At the conclusion of the case, the anatomy was restored to essentially normal and all significant grossly detectable disease was able to be surgically resected such that all that remained was tiny implants no larger than 1-3 mm that were on the surface of the bowel or liver, not amenable to surgery. STATEMENT OF COMPLEXITY: The complexity of this case and the duration of dissection was increased significantly due to extensive pelvic adhesions. It is estimated that at least an hour and a half total operative time was spent lysing adhesions to restore normal anatomy, gain access to the pelvis and to accomplish surgical objectives. Modifier should be applied accordingly. DESCRIPTION OF PROCEDURE: She was taken to the operating room and placed in dorsal lithotomy position, after general endotracheal anesthesia was administered. A timeout was undertaken, she was identified by site recognition and hospital ID bracelet and the proposed procedure was reviewed and confirmed. She was carefully positioned in padded Hector stirrups. Her arms were padded and secured to the sides. She was further secured to the operating table with egg crate padding and tape in a crossed over the shoulder fashion. All sites noted to be properly aligned but no malalignment or pressure points. She was prepped in sterile fashion and draped below the waist, placed in lithotomy position. The cervix was grasped. Uterine cavity was sounded and a large VCare manipulator was inserted and secured in usual fashion. Beltran catheter placed in the bladder. She was return to low lithotomy position and change of sterile gloves was undertaken. We confirmed that an orogastric tube was in the stomach on suction and with manual elevation of the abdominal wall, 5 mm cannula was introduced into the left upper quadrant. Carbon dioxide gas was insufflated and an atraumatic entry was confirmed. An 8 mm cannula placed in the right upper quadrant, the anatomy was surveyed. It was felt it was reasonable to try to proceed laparoscopically, so a 12 mm cannula was then placed in the midline above the umbilicus and an 8 mm cannula placed in the left lateral abdomen. The original 5 mm cannula exchanged for an 8 mm cannula. Peritoneal washings were obtained for cytology. The anatomy was explored with findings as described above. She was placed in Trendelenburg position. The small bowel was folded back on its mesenteric root and 3 Ray-Sussy sponges were placed around the root of the small bowel mesentery. The robotic system was attached in usual fashion. Monopolar scissors, fenestrated bipolar forceps and ProGrasp manipulators were placed in arms #1, 2, and 3 respectively and I took my place at the surgeon's console. The right round ligament isolated and cauterized, and transected and the anterior and posterior leaves of the broad ligament were opened. The right ureter was identified. The right infundibulopelvic ligament was isolated to the level of the pelvic brim. The right infundibulopelvic ligament was cauterized and transected. Adhesions were taken down to mobilize the right ovary from its fixation to the pelvic sidewall and cul-de-sac and dissection was continued until it was elevated, isolating it on the right uteroovarian ligament. The vesicouterine peritoneum was dissected off the lower uterine segment and cervix on the right and the uterine vessels were skeletonized. Attention was directed to the posterior dissection where the colon was densely adherent to the uterus and cervix. Sharp dissection was used to take the colon and pericolonic fat down from its attachments to the posterior uterus and cervix in a cautious stepwise fashion, freeing the attachments along the right side and mobilizing it initially from the left-sided attachments. The right uterine vessels were now able to be skeletonized and they were cauterized. Attention was directed toward the left side, left retroperitoneal dissection was carried out to mobilize the colon from its attachments to the left pelvic sidewall and to free it from its overlying attachments to the left pelvic structures. The left round ligament was isolated, cauterized, and transected. The anterior and posterior leafs of the broad ligament were further dissected. The left ureter was identified on the medial leaf of the broad ligament and the left infundibulopelvic ligament was isolated. The intervening peritoneum was opened. The infundibulopelvic ligament was isolated to the level of the pelvic brim where it was cauterized and transected. The ureter was adherent to the posterior lateral aspect of the mass and sharp and blunt dissection were used in a stepwise fashion to free the ureter from its attachments to the mass as the transected gonadal vessels were used to elevate the ovary, the surrounding adhesions were taken down. More of the colon and pericolonic adhesions were taken down with sharp dissection to free them from the left ovary and from the left posterior aspect of the uterus and cervix and to continue dissection until the cul-de-sac was reestablished. The ureter was dissected free along its course in the pelvis until it could be retracted laterally and the adjacent adhesions from the ovary were taken down with sharp dissection until the ovary could be elevated and lifted attached only by the left utero-ovarian ligament. Some bleeding was encountered and the left utero-ovarian ligament was cauterized to assist in hemostasis. The left vesicouterine peritoneum was dissected off the lower uterine segment and cervix. The left uterine vessels were now able to be skeletonized and they were cauterized. There was good blanching of the uterus. The right uterine vessels were now transected and the cardinal, paracervical and uterosacral ligaments were isolated, cauterized, and transected in a stepwise fashion, thereby freeing the attachments along the right side of the uterus and cervix. Attention was directed toward the left side with the left uterine vessels were now transected and the cardinal, paracervical and uterosacral ligaments were isolated, cauterized, and transected in stepwise fashion, thereby freeing the attachments to the left side of the uterus and cervix. Colpotomy was performed the cervix from the upper vagina and the specimens were withdrawn transvaginally which included uterus, cervix, tubes and ovaries and the attached tumor. A pneumo-occluder balloon was placed in the vagina to maintain pneumoperitoneum. Instruments 1 and 3 were needle drivers as a 0 Vicryl suture was introduced. The vaginal cuff was closed starting at the left corner full-thickness closure, tied via instrument tie and closure was held on countertraction as a running continuous full-thickness closure was carried across the vaginal apex closing and reapproximating the cuff rendering it hemostatic. It was similarly secured, fixed and tied on the right corner including the edge of the uterosacral ligament tied via instrument tie and the needle was cut and removed. The pelvis was thoroughly irrigated. Small bleeders remain hemostatic with bipolar cautery. The integrity of the bladder was confirmed by filling the bladder with saline dyed with methylene blue. The bladder distended nicely under pressure. There were no thin areas, no extravasation of dye. There was a good margin between the vaginal cuff suture line and the edge of the bladder. Good peristalsis of ureters and the bladder was drained. To assist in continued hemostasis, hemostatic Chely powder was placed in the lateral pelvic sidewall dissection, posterior cul-de-sac and across the vaginal cuff. As all tumor had now been resected from the pelvis, attention was directed toward the abdomen to address the omental tumor. An extra set of graspers were placed in arms #1. The distal edge of the omentum was identified and pulled toward the pelvis. The tumor extended partially into the gastrocolic ligament and continued into the infracolic omentum. The dissection was started near the splenic flexure where segments of the gastrocolic ligament were isolated, cauterized, and transected in a stepwise fashion to allow further mobilization of the omentum and the tumor. A plane was developed between the transverse colon and the omentum with the tumor where nonvascular attachments were taken down with sharp dissection. Vascular attachments were isolated, cauterized with bipolar cautery and transected in a stepwise fashion until the left side of the omentum with tumor had been resected and was placed in the right pericolic gutter for later retrieval. Now, the right portion of the omentum was isolated starting near the hepatic flexure where similarly nonvascular attachments between the transverse colon and the omentum were isolated, taken down with sharp dissection. Vascular attachments from the gastrocolic ligament were isolated, cauterized, and transected and a plane was developed between the transverse colon and the omentum, which similarly vascular pedicles were isolated, cauterized, and transected in stepwise fashion until the right side omentum was completely removed and placed in the right pericolic gutter. Inspection confirmed that there was no remaining grossly detectable tumor, nothing that was amenable to surgery, with findings as described above. Therefore, it was felt that all reasonable surgical objectives had been completed, so the robotic instruments were removed and the robotic system disengaged from the operative field. I reentered the bedside under sterile condition. Each of the 3 Ray-Sussy sponges that were placed were now removed. They were each removed individually and inspected and noted to be removed in their entirety. Next, the 12 mm fascial defect was extended with sharp dissection and a 15 mm cannula was introduced and a 15 cm EndoCatch bag was introduced. The omental specimens were placed in the bag. The bag was drawn closed and brought to the abdominal wall and the omentum with tumor was able to be removed using ring forceps of countertraction to withdraw the specimens until the bag could be withdrawn from the abdominal wall. Inspection confirmed there were no remaining foreign objects in the peritoneal cavity. Preliminary counts were correct and attention was directed toward closing. 0 Vicryl sutures were used to close the midline fascial defect using a needle pass apparatus. The sutures were tied, was trimmed to the fascia completely airtight and hemostatic. The remaining cannulas were withdrawn. Carbon dioxide gas was removed, 3-0 Vicryl subcutaneous and 3-0 Vicryl subcuticular followed by Steri-Strips were used to close these incisions. She was returned to dorsal lithotomy position. Pelvic exam confirmed the vaginal cuff was well supported with good hemostasis. There was some superficial mucosal irritation near the introitus with periurethral irritation and superficial laceration as well as on the perineum. The remainder of the Chely hemostatic agent was placed on the mucosal surfaces and the superficial lacerations in the periurethral area and perineum were closed with interrupted [id number] 3-0 Vicryl sutures. All sites were hemostatic. Preliminary and final counts were correct. There were no remaining foreign objects in the vagina. She was returned to dorsal supine position and was pending reversal of anesthesia when I left the operating room to precede her to the postanesthesia care unit. MD JESUS Herndon/eliezer , 02:08 PM , 02:34 PM PIYUSH
[2018-05-05] MEDS: Ketorolac Inj 30 MG/ML (IVP) Vial IV.PUSH SCH (17:19)
[2018-05-05] MEDS: Insulin NovoLIN Regular Correctional Sugar Inj SQ SCH (17:32)
[2018-05-05] MEDS ORDERED: Lisinopril 20 MG Tablet PO SCH (21:00)
[2018-05-06] MEDS: KCL 20 mEq/D5W/NaCl 0.45% Inj 1,000 ML IV.CONT SCH (00:17)
[2018-05-06] MEDS: Ketorolac Inj 30 MG/ML (IVP) Vial IV.PUSH SCH ×2 (00:17→05:21)
[2018-05-06] MEDS: Insulin NovoLIN Regular Correctional Sugar Inj SQ SCH ×2 (00:29→05:22)
[2018-05-06] MEDS ORDERED: Levothyroxine 150 MCG Tablet PO SCH (06:00)
[2018-05-06 06:24] LABS: Baso % (Auto) 0.1 % (0.0-2.0); Eos % (Auto) 0.1 % (0.0-4.0); Hematocrit 28.5 % (35.0-46.0); Hemoglobin 10.2 gm/dL (11.6-15.3); Lymph # (Auto) 1.5 th/mm3 (1.0-4.8); Lymph % (Auto) 15.7 % (9.0-44.0); Mean Corpuscular HGB Conc 35.6 % (32.0-36.0); Mean Corpuscular Hemoglobin 33.7 pg (27.0-34.0); Mean Corpuscular Volume 94.7 fL (80.0-100.0); Mean Platelet Volume 6.9 fL (7.0-11.0); Mono # (Auto) 0.8 th/mm3 (0.0-0.9); Mono % (Auto) 8.5 % (0.0-8.0); Neut # (Auto) 7.2 th/mm3 (1.8-7.7); Neut % (Auto) 75.6 % (16.0-70.0); Platelet Count 160 th/mm3 (150-450); Red Blood Count 3.01 mil/mm3 (4.00-5.30); Red Cell Distribution Width 12.9 % (11.6-17.2); White Blood Count 9.5 th/mm3 (4.0-11.0)
[2018-05-06 06:49] LABS: Calcium 8.2 mg/dL (8.5-10.1); Carbon Dioxide 22.6 meq/L (21.0-32.0); Potassium 4.3 meq/L (3.5-5.1)
--- NOTE | 2018-05-06 07:50 | P.PNONC ---
Subjective Interval history: POD #1 patient has been OOB to walk to bathroom denies any n/v pain controlled Devin was D/C'd discussed with patient finding at the time of surgery OK to discharge home today instructions discussed with patient Percocet script in chart for pain follow up as outpt in 2 weeks for final pathology discussion Objective Vital Signs/Intake & Output: Vital Signs 05/05/18 13:15 05/05/18 13:30 05/05/18 13:45 Temperature 96.0 F L Pulse Rate 89 85 87 Respiratory Rate 15 14 13 Blood Pressure 174/81 H 157/74 H 156/77 H Pulse Oximetry 98 100 100 05/05/18 14:00 05/05/18 14:15 05/05/18 14:55 Temperature 97.3 F L Pulse Rate 86 83 85 Respiratory Rate 19 14 18 Blood Pressure 150/71 H 154/72 H 159/80 H Pulse Oximetry 97 95 99 05/05/18 15:01 05/05/18 17:20 05/05/18 20:15 Temperature 96.8 F L 97.8 F 99.2 F Pulse Rate 85 86 90 Respiratory Rate 18 18 Blood Pressure 159/80 H 169/71 H 170/82 H Pulse Oximetry 99 100 99 05/06/18 00:15 05/06/18 00:47 05/06/18 04:00 Temperature 99.2 F 99 F Pulse Rate 96 H Respiratory Rate 17 18 18 Blood Pressure 120/55 L 121/60 Pulse Oximetry 99 96 05/06/18 05:51 05/06/18 07:31 Temperature 98.7 F Pulse Rate 90 Respiratory Rate 18 18 Blood Pressure 126/68 Pulse Oximetry 97 Intake & Output 05/05/18 05/06/18 05/06/18 18:59 06:59 18:59 Intake Total 2500 / 2500 1000 / 1000 Output Total 350 / 350 1500 / 1500 Balance 2150 / 2150 -500 / -500 Weight 83.5 kg Intake: IV 1000 / 1000 D5W/1/2NS + KCL 20 mEq Inj 1, 1000 / 1000 000 ML @ 100 mls/hr IV.CONT . Q10H [facility] Rx#:[id number] Anesthesia Amount 2500 / 2500 Output: Urine 400 / 400 Estimated Blood Loss 350 / 350 Urine Amount (Catheter) 1100 / 6435 640 7948 / 1100 Result Diagrams: 05/06/18 05:36 05/06/18 05:36 Laboratory Results: Laboratory Results - last 24 hr 05/05/18 05/05/18 05/05/18 06:15 13:49 17:30 WBC RBC Hgb Hct MCV MCH MCHC RDW Plt Count MPV Neut % (Auto) Lymph % (Auto) Gaston % (Auto) Eos % (Auto) Baso % (Auto) Neut # (Auto) Lymph # (Auto) Gaston # (Auto) Eos # (Auto) Baso # (Auto) WBC Differential Differential Comment Sodium Potassium Chloride Carbon Dioxide Anion Gap BUN Creatinine Estimated GFR POC Glucose 226 H 282 H Random Glucose Calcium Blood Type A Positive Antibody Screen Negative MTS Gel Crossmatch See Detail 05/06/18 05/06/18 05/06/18 00:24 05:21 05:36 WBC 9.5 RBC 3.01 L Hgb 10.2 L Hct 28.5 L MCV 94.7 MCH 33.7 MCHC 35.6 RDW 12.9 Plt Count 160 MPV 6.9 L Neut % (Auto) 75.6 H Lymph % (Auto) 15.7 Gaston % (Auto) 8.5 H Eos % (Auto) 0.1 Baso % (Auto) 0.1 Neut # (Auto) 7.2 Lymph # (Auto) 1.5 Gaston # (Auto) 0.8 Eos # (Auto) 0.0 Baso # (Auto) 0.0 WBC Differential . Differential Comment Auto diff final Sodium Potassium Chloride Carbon Dioxide Anion Gap BUN Creatinine Estimated GFR POC Glucose 195 H 146 H Random Glucose Calcium Blood Type Antibody Screen MTS Gel Crossmatch 05/06/18 05:36 WBC RBC Hgb Hct MCV MCH MCHC RDW Plt Count MPV Neut % (Auto) Lymph % (Auto) Gaston % (Auto) Eos % (Auto) Baso % (Auto) Neut # (Auto) Lymph # (Auto) Gaston # (Auto) Eos # (Auto) Baso # (Auto) WBC Differential Differential Comment Sodium 138 Potassium 4.3 Chloride 108 H Carbon Dioxide 22.6 Anion Gap 7 BUN 20 H Creatinine 1.18 H Estimated GFR 46 L POC Glucose Random Glucose 125 H Calcium 8.2 L Blood Type Antibody Screen MTS Gel Crossmatch Medications: Active Medications Generic Name Dose Route Start Last Admin Trade Name Freq PRN Reason Stop Dose Admin Sodium Chloride 500 mls @ 30 mls/hr 05/05/18 06:00 05/05/18 06:39 Ns Inj IV.SIG Not Given .Q10H SHARA Potassium Chloride/Dextrose/Sod Cl 1,000 mls @ 100 mls/hr 05/05/18 13:15 04/13 00:17 D5w/1/2ns + Kcl 20 Meq Inj IV.CONT 100 mls/hr .Q10H SHARA Administration Insulin Human Regular 0 units 05/05/18 18:00 05/06/18 05:22 Novolin R Correctional Sugar Inj SQ Not Given Q6HR SHARA Protocol Ketorolac Tromethamine 15 mg 05/05/18 18:00 05/06/18 05:21 Toradol Inj IV.PUSH 05/06/18 12:01 15 mg Q6HR SHARA Administration Levothyroxine Sodium 150 mcg 05/06/18 06:00 05/06/18 05:21 Synthroid PO 150 mcg DAILY@0600 SHARA Administration Lisinopril 20 mg 05/05/18 21:00 05/05/18 20:24 Prinivil PO 20 mg HS SHARA Administration Sodium Chloride 2 ml 05/05/18 21:00 05/05/18 20:24 Ns Flush IV.FLUSH 2 ml BID SHARA Administration Objective Remarks: GENERAL: Well-nourished, well-developed patient. SKIN: Warm and dry. HEAD: Normocephalic. EYES: No scleral icterus. No injection or drainage. CARDIOVASCULAR: Regular rate and rhythm without murmurs. RESPIRATORY: Breath sounds equal bilaterally. No accessory muscle use. GASTROINTESTINAL: Abdomen soft, SS are c/d/i mild ecchymosis to midline site EXTREMITIES: teds and scds, pt up to ambulate to BR MUSCULOSKELETAL: Adequate muscle tone. NEUROLOGICAL: No obvious focal deficit. Awake, alert, and oriented x3. PSYCHIATRIC: Appropriate mood and affect; insight and judgment normal. Assessment/Plan - Plan s/p RA lap hyst with BSO and tumor debulking post op orders in chart Percocet PRN Toradol scheduled ADAT Beltran to straight drain, will D/C in am anticipate discharge in the next 24-48 hours 05/06/18 POD #1 s/p RA lap hyst with BSO, tumor debulking and omentectomy OK to discharge home today Percocet script in chart for pain IS at bedside, instructed to take home and continue to use for the next few days restrictions reviewed follow up in web site admin/onc clinic in 2 weeks for final pathology creat slightly elevated, encourage fluid intake and talked with her about additional hydration as outpt once IV chemotherapy is restarted. Discussed with patient, RN and Dr. Manning.
[2018-05-06] MEDS ORDERED: Heparin Central Flush 100 UNIT/ML 5 ML Vial IV.FLUSH PRN (09:50)
== END 2018-05-06 10:30 | disposition home or self-care (01) ==
LOC: HSDI 05:20 → HSDC 05:20 → HCIN 14:50
PROVIDERS: ADMIT Obstetrics & Gynecology Gynecologic Oncology; ATTEND Obstetrics & Gynecology Gynecologic Oncology